=== PATIENT | male | born 1950 | race Caucasian/White ===

== ENCOUNTER 2019-09-30 11:26 | Inpatient (IN) | payer SELFPAY ==
[~2019-09-30] VITALS: Ht 180.3 cm; Wt 74.8 kg
[2019-09-30] MEDS ORDERED: SODIUM CHLORIDE 0.9% 500 ML IV ONE (11:49)
[2019-09-30 12:36] LABS: Basophils # (auto) 0.1 uL; Basophils % (auto) 0.5 % (0.0-2.0); Eosinophils # (auto) 0 uL; Hematocrit 40.5 % (41.0-53.0); Hemoglobin 13.1 g/dL (13.5-17.5); Lymphocytes # (auto) 0.3 uL; Lymphocytes % (auto) 2.8 % (10.0-50.0); Mean Corpuscular Hemoglobin 31.8 pg (28.0-32.0); Mean Corpuscular Hgb Conc. 32.4 g/dL (32.0-36.0); Mean Corpuscular Volume 98.1 fL (80.0-100.0); Monocytes # (auto) 1.2 uL; Monocytes % (auto) 10.5 % (0.0-12.0); Neutrophils # (auto) 9.7 uL; Neutrophils % (auto) 86.2 % (37.0-80.0); Nucleated Red Blood Cells % 0.2 %; Platelet Count (auto) 182 10^3/uL (140-450); Red Blood Cells 4.13 10^6/uL (4.5-5.90); White Blood Cell 11.3 10^3/uL (4.4-10.8)
[2019-09-30 12:48] LABS: Albumin 2.8 g/dL (3.4-5.0); Potassium 3.5 mmol/L (3.5-5.1)
[2019-09-30 12:50] LABS: BUN/Creatinine Ratio 18.1
[2019-09-30 12:55] LABS: Bilirubin, Total 2.8 mg/dL (0.2-1.0)
[2019-09-30] MEDS ORDERED: ENOXAPARIN SOD 100 MG/1 ML SYRINGE SC ONE (13:15)
[2019-09-30 13:30] LABS: Urine WBC None Seen /hpf (0 - 3)
[2019-09-30] MEDS ORDERED: AMIODARONE HCL 900 MG in DEXTROSE 500 ML IV SCH (13:41)
[2019-09-30] MEDS ORDERED: SODIUM CHLORIDE 0.9% 1,000 ML IV ONE ×2 (13:45→21:30)
[2019-09-30] MEDS ORDERED: PIPERACILLIN-TAZOB 3.375GM 100 ML IV ONE (13:45)
[2019-09-30] MEDS ORDERED: AMIODARONE HCL 150 MG in D5W 5% 100 ML IV ONE (13:45)
[2019-09-30 13:52] LABS: Alcohol, Urine < 3.0 mg/dL (0-5); Amphetamine Screen, Urine POSITIVE (NEGATIVE); Barbiturate Scree,Urine NEGATIVE (NEGATIVE); Cocaine Screen, Urine NEGATIVE (NEGATIVE); Opiate Scree,Urine NEGATIVE (NEGATIVE); Urine Bacteria FEW /hpf (None Seen); Urine Blood 3+ /uL (Negative); Urine Hyaline Cast MANY /lpf (0 - 2); Urine Mucus FEW (None Seen); Urine Specific Gravity 1.023 (1.001-1.035)
[2019-09-30 14:00] LABS: Benzodiazephine Screen, Urine NEGATIVE (NEGATIVE); Cannabinoid Screen, Urine NEGATIVE (NEGATIVE); Phencyclidine Screen, Urine NEGATIVE (NEGATIVE)
[2019-09-30 14:20] LABS: Lactic Acid w/Reflex 3.6 mmol/L (0.4-2.0)
[2019-09-30] MEDS ORDERED: chlordiazePOXIDE HCL 25 MG CAP PO ONE (14:45)
[2019-09-30] MEDS ORDERED: NITROGLYCERIN 0.4 MG SL TAB SL PRN (14:45)
[2019-09-30] MEDS ORDERED: THIAMINE 100mg/ml INJ (200mg/2ml VIAL) IV ONE (14:45)
[2019-09-30] MEDS ORDERED: MORPHINE SULF INJ 2 MG/ML SYRINGE 1ML IV PRN (14:45)
[2019-09-30] MEDS ORDERED: PROMETHAZINE HCL 25 MG/ML 1ML IV PRN (14:45)
[2019-09-30] MEDS ORDERED: MORPHINE SULF INJ 2 MG/ML SYRINGE 1ML IV ONE (14:45)
[2019-09-30] MEDS ORDERED: ALBUTEROL SULF 2.5 MG/0.5ML(0.5%) NEB SOLN NEB PRN (14:45)
[2019-09-30] MEDS ORDERED: chlordiazePOXIDE HCL 25 MG CAP PO PRN (14:45)
[2019-09-30] MEDS ORDERED: LABETALOL HCL 5 MG/ML ML 20ML VIAL IV PRN (14:45)
[2019-09-30] MEDS ORDERED: LACTULOSE 20Gm/30ML SOLN PO PRN (14:45)
[2019-09-30] MEDS ORDERED: LORazepam 2MG/ML-1ML VIAL IV ONE (14:45)
[2019-09-30] MEDS ORDERED: MORPHINE SULFATE 4 MG/ML SYR/VIAL IV PRN ×2 (14:45)
[2019-09-30 14:59] VITALS: BP 132/97
[2019-09-30 15:39] LABS: INR 1.23 (0.9-1.15); Partial Thromboplastin Time 30.2 sec (23.64-32.05)
[2019-09-30 16:45] LABS: CRP High Sensitivity 5.34 mg/dL (< 0.3)
[2019-09-30] MEDS ORDERED: METOPROLOL TARTRATE 1MG/1ML-5ML VIAL IV ONE (17:00)
[2019-09-30] MEDS ORDERED: FUROSEMIDE 40 MG/4 ML VIAL IV ONE (17:00)
[2019-09-30] MEDS ORDERED: FUROSEMIDE 40 MG/4 ML VIAL IV SCH (18:00)
[2019-09-30] MEDS: chlordiazePOXIDE HCL 25 MG CAP PO SCH (18:24)
--- NOTE | 2019-09-30 19:30 | NUR ---
PT ASSESSED, RR 3O, SAT 95% ON NRB. BS SLIGHTLY COARSE, NO WHEEZING NOTICED. PT RECEIVED PAIN MEDS AND RESTING. SLIGHT MOTTLING OF THE EXTREMITIES NOTED, RN AT BEDSIDE. WILL CONTINUE RESP STATUS CLOSELY.
[2019-09-30] MEDS ORDERED: cefTRIAXone 1GM/50ML D5W 50 ML IV SCH (21:00)
[2019-09-30] MEDS ORDERED: NOREPINEPHRINE 8 MG/250ML KIT 250 ML IV SCH (21:21)
[2019-09-30 21:51] VITALS: BP 86/50
[2019-09-30] MEDS ORDERED: ENOXAPARIN SOD 80 MG/0.8ML SYRINGE SC SCH (22:00)
[2019-09-30] MEDS ORDERED: METOPROLOL TARTRATE 25 MG TAB PO SCH (22:00)
[2019-09-30] MEDS ORDERED: CLINDAMYCIN 600MG IV 50 ML IV SCH (22:00)
[2019-09-30] MEDS ORDERED: NALOXONE HCL 0.4 MG/ML VIAL IV ONE (22:45)
[2019-09-30] MEDS ORDERED: NALOXONE HCL 0.4 MG/ML VIAL ONE (22:46)
[2019-09-30] MEDS ORDERED: ETOMIDATE (2MG/ML) 20ML VIAL IV ONE (23:03)
[2019-09-30] MEDS ORDERED: SUCCINYLCHOLINE CHLORIDE 20 MG/ML 10ML VIAL IV ONE (23:04)
[2019-09-30 23:49] VITALS: BP 96/70
[2019-09-30] MEDS ORDERED: MIDAZOLAM DRIP 50 mg/50mL 50 ML IV SCH (23:54)
[2019-10-01] MEDS ORDERED: ETOMIDATE (2MG/ML) 20ML VIAL IV ONE
[2019-10-01] MEDS ORDERED: SUCCINYLCHOLINE CHLORIDE 20 MG/ML 10ML VIAL IV ONE
[2019-10-01] MEDS ORDERED: VANCOMYCIN PER PHARMACY 0 MG IV SCH
[2019-10-01] MEDS: chlordiazePOXIDE HCL 25 MG CAP PO SCH
[2019-10-01] MEDS ORDERED: VANCOMYCIN 1GM/250ML 250 ML IV ONE
[2019-10-01 02:00] VITALS: BP 91/64
[2019-10-01 02:25] VITALS: BP 136/100
[2019-10-01] MEDS ORDERED: AMIODARONE HCL 900 MG in DEXTROSE 500 ML IV SCH (03:30)
[2019-10-01] MEDS ORDERED: SODIUM CHLORIDE 0.9% 1,000 ML IV SCH ×2 (03:30)
[2019-10-01 04:09] VITALS: BP 46/33
[2019-10-01] MEDS ORDERED: SODIUM BICARBONATE 8.4 % INJ 50ML VIAL IV ONE (04:15)
[2019-10-01 04:25] VITALS: BP 46/32
[2019-10-01] MEDS ORDERED: EPINEPHrine HCL 250 ML IV SCH (04:49)
[2019-10-01] MEDS ORDERED: EPINEPHrine HCL 250 ML IV ONE (04:54)
[2019-10-01 05:33] LABS: Hematocrit 37.7 % (41.0-53.0); Red Blood Cells 3.43 10^6/uL (4.5-5.90); White Blood Cell 6.4 10^3/uL (4.4-10.8)
[2019-10-01 05:35] LABS: Hemoglobin 11.4 g/dL (13.5-17.5); Mean Corpuscular Hemoglobin 33.3 pg (28.0-32.0); Mean Corpuscular Hgb Conc. 30.3 g/dL (32.0-36.0); Mean Corpuscular Volume 109.8 fL (80.0-100.0); Platelet Count (auto) 93 10^3/uL (140-450); Red Cell Distribution Width 17.8 % (11.8-14.3)
[2019-10-01 05:38] LABS: Basophils % (manual) 0 (0.0-2.0); Blast Cells 0; Eosinophils % (manual) 0 (0-7); Myelocytes % 0; Promyelocytes % 0; Reactive Lymphocytes 0
[2019-10-01 05:52] LABS: Chloride 106 mmol/L (98-107); Sodium 139 mmol/L (136-145)
[2019-10-01] MEDS ORDERED: FUROSEMIDE 40 MG/4 ML VIAL IV SCH ×2 (06:00→10:00)
[2019-10-01 06:09] LABS: Band Neutrophils % (manual) 6; Lymphocytes % (manual) 34 (10.0-50.0); Metamyelocytes % 4; Monocytes % (manual) 9 (0-12)
[2019-10-01 06:15] VITALS: BP 128/46
[2019-10-01] MEDS ORDERED: DEXTROSE 50% SYRINGE 50 ML IV ONE (06:19)
[2019-10-01 06:20] LABS: Alanine Aminotransferase 3075 U/L (16-61); Albumin 1.5 g/dL (3.4-5.0); Alkaline Phosphatase 92 U/L (45-117); Anion Gap 21 (5-15); Aspartate Aminotransferase 14976 U/L (15-37); Bilirubin, Total 4.3 mg/dL (0.2-1.0); Blood Urea Nitrogen 32 mg/dL (7-18); Calcium 6.6 mg/dL (8.5-10.1); Carbon Dioxide 12 mmol/L (21-32); Cholesterol < 50 mg/dL (< 200); GFR African American 37 mL/min; GFR Non-African American 30 mL/min; HDL Cholesterol 41 mg/dL (40-59); LDL Cholesterol 16 mg/dL (< 100); Total Protein 3.8 g/dL (6.4-8.2); Triglycerides 182 mg/dL (< 150)
[2019-10-01] MEDS ORDERED: EPINEPHrine HCL 1 MG/10 ML SYRG ONE (06:24)
[2019-10-01 06:31] LABS: Potassium 6.1 mmol/L (3.5-5.1)
[2019-10-01 06:32] LABS: Glucose 10 mg/dL (74-106)
[2019-10-01] MEDS ORDERED: MORPHINE SULF INJ 2 MG/ML SYRINGE 1ML IV PRN ×2 (08:45)
[2019-10-01] MEDS ORDERED: THIAMINE 100mg/ml INJ (200mg/2ml VIAL) IV SCH (10:00)
[2019-10-01] MEDS ORDERED: ASPirin 81 mg TAB PO SCH (10:00)
[2019-10-01] MEDS ORDERED: NITROGLYCERIN 0.2MG/HR TOPICAL PATCH TD SCH (10:00)
[2019-10-01] MEDS ORDERED: EPINEPHrine HCL 1 MG/10 ML SYRG IV ONE (13:10)
[2019-10-01] MEDS ORDERED: DEXTROSE (50%) 50ML SYRG IV ONE (13:10)
[2019-10-01] MEDS ORDERED: CALCIUM CHLOR(10%) 100MG/ML 10ML SYRINGE IV ONE (13:10)
[2019-10-01] MEDS ORDERED: SODIUM BICARBONATE 8.4% INJ 50ML SYRINGE IV ONE (13:10)
== END 2019-10-01 06:42 | disposition expired | DRG 201 ==
LOC: EDBD 11:26 → ER 11:26 → TELE 11:27
PROVIDERS: ADMIT Internal Medicine; ATTEND Internal Medicine
PROC: 5A09357 Assistance with Respiratory Ventilation, Less than 24 Consecutive Hours, Continuous Positive Airway Pressure (ICD-10-PCS; 2019-09-30)
PROC: 5A12012 Performance of Cardiac Output, Single, Manual (ICD-10-PCS; principal; 2019-10-01)
PROC: 0BH17EZ Insertion of Endotracheal Airway into Trachea, Via Natural or Artificial Opening (ICD-10-PCS; 2019-10-01)
PROC: 5A1935Z Respiratory Ventilation, Less than 24 Consecutive Hours (ICD-10-PCS; 2019-10-01)
DX: I48.91 Unspecified atrial fibrillation (principal); M62.82 Rhabdomyolysis; E87.70 Fluid overload, unspecified; I67.2 Cerebral atherosclerosis; F17.210 Nicotine dependence, cigarettes, uncomplicated; I49.3 Ventricular premature depolarization; I70.0 Atherosclerosis of aorta; S42.031A Displaced fracture of lateral end of right clavicle, initial encounter for closed fracture; S42.033A Displaced fracture of lateral end of unspecified clavicle, initial encounter for closed fracture; W18.39XA Other fall on same level, initial encounter; Z66 Do not resuscitate; S42.121A Displaced fracture of acromial process, right shoulder, initial encounter for closed fracture; Z86.73 Personal history of transient ischemic attack (TIA), and cerebral infarction without residual deficits; Y93.89 Activity, other specified; Y92.89 Other specified places as the place of occurrence of the external cause; Y99.8 Other external cause status; Z79.899 Other long term (current) drug therapy
CPT/HCPCS: 36415; 36600; 70450; 71045; 73030; 73060; 73090; 73130; 80053; 80061; 80307; 80320; 81001; 82550; 82805; 82962; 83605; 83880; 84443; 84484; 85007; 85025; 85027; 85610; 85652; 85730; 86141; 87040; 87070; 87086; 87088; 87186; 87205; 92950; 93005; 94640; 99291; G0378; J0171; J0330; J0696; J2250; J2543; J7060